=== PATIENT | female | born 1945 | race Caucasian/White ===

== ENCOUNTER 2024-10-31 12:15 | Inpatient (IN) ==
--- NOTE | 2024-10-31 12:27 | Emergency Department Note ---
HPI - General Adult General Chief complaint: General Complaint Stated complaint: FLUIDS Time Seen by Provider: 10/31/24 12:21 Source: family and caregiver Mode of arrival: walk-in Limitations: no limitations History of Present Illness HPI narrative: This is a 78 year old female patient that presents to the ER for IVF. Per son patient has been sick and has had a decreased appetitite and has not been drinking fluids. patient is on hospice at the group home. Per son patient was sent here to the ER for IVF Related Data Previous Rx's Medication Instructions Recorded cefdinir 300 mg capsule 300 mg PO BID infection 7 days #14 04/22/24 caps ondansetron HCl 4 mg tablet 4 mg PO Q6H PRN nausea and 04/22/24 vomiting #12 tabs Allergies Allergy/AdvReac Type Severity Reaction Status Date / Time No Known Drug Allergies Allergy Verified 10/31/24 12:44 Review of Systems Status of ROS unobtainable due to medical condition [facility] Medical History (Updated 10/31/24 @ 12:52 by Margy Mallory RN) Dependence on continuous supplemental oxygen Hypertension Hyperlipidemia Insomnia GERD (gastroesophageal reflux disease) Depression Anxiety Anemia COPD (chronic obstructive pulmonary disease) Alzheimer disease Social History Smoking status: former smoker Exam Constitutional: normal general appearance and no apparent distress Vital Signs - 24 hr 10/31/24 12:15 10/31/24 12:20 Temperature 99.0 F Pulse Rate 110 H Respiratory Rate 24 Blood Pressure 148/85 148/65 Pulse Oximetry 85 L 91 L Oxygen Delivery Me thod Room Air Nasal Cannula Oxygen Flow Rate 3 HENMT: normocephalic, head/scalp atraumatic, hearing grossly normal bilaterally, external ears normal, nasal mucous membranes normal, external nose normal, oral mucous membranes normal and oropharynx normal Eyes: PERRL, EOMs intact bilaterally, conjunctivae normal and no scleral icterus Neck/C-Spine: visual inspection normal and trachea midline Lymph: no lymphadenopathy noted Chest: inspection of chest normal Respiratory: breath sounds equal bilaterally, normal respiratory effort, clear to auscultation bilaterally, no wheezes, no rales, no retractions and no use of accessory muscles Cardiovascular: normal heart rate noted, regular rhythm noted, no gallop, no rub, no murmur, no JVD, no clicks, peripheral pulses 2+ throughout and no additional abnormal heart sounds Gastrointestinal: abdomen normal to inspection, abdomen soft to palpation, nontender to palpation, nontender to percussion, nondistended, normoactive bowel sounds, no hepatosplenomegaly, no masses, no pulsatile mass, no ascites and no hernia Back/Pelvis: spine normal to inspection Extremities: normal to inspection and normal to palpation Neurology: speech normal A&Ox name, place, confused to year and month Psychiatry: A&O to name and place, confused to year and month Skin: skin color normal Course Course Hospital Course: 1356: VSS, no s/s of acute distress noted, due to patient needing further treatment and medical evaluation will admit to the hospital Vital Signs Vital signs: Vital Signs Temperature 99.0 F 10/31/24 12:15 Pulse Rate 110 H 10/31/24 12:15 Respiratory Rate 10/31/24 12:15 Blood Pressure 148/85 10/31/24 12:15 Pulse Oximetry 85 L 10/31/24 12:15 Oxygen Delivery Method Room Air 10/31/24 12:15 Temperature 99.0 F 10/31/24 12:15 Pulse Rate 110 H 10/31/24 12:15 Respiratory Rate 10/31/24 12:15 Blood Pressure 148/65 10/31/24 12:20 Pulse Oximetry 91 L 10/31/24 12:20 Oxygen Delivery Method Nasal Cannula 10/31/24 12:20 Oxygen Flow Rate 3 10/31/24 12:20 Medical Decision Making Differential Diagnosis Differential Diagnosis: viral illness Medical Records Medical records reviewed: Yes I reviewed the patient's medical records Lab Data Lab results reviewed: Yes I reviewed the patient's lab results Labs: Lab Results 10/31/24 Range/Units 12:35 WBC 15.2 H (4.3-9.3) K/uL RBC 3.8 L (4.00-5.50) M/uL Hgb 10.6 L (12.5-15.8) gm/dL Hct 32.1 L (35.9-46.7) % MCV 83.8 (81.0-93.7) fl MCH 27.7 (27.6-32.2) pg MCHC 33.1 (33.1-35.3) g/dl RDW 13.8 (11.4-14.2) % Plt Count 284 (152-353) K/uL MPV 7.6 (6.9-10.8) fl Gran % 85.0 H (47.8-71.3) % Lymph % (Auto) 7.1 L (20.0-43.0) % [place] % (Auto) 7.1 (3.6-9.8) % Eos % (Auto) 0.4 (0.4-2.8) % Baso % (Auto) 0.4 (0.1-0.85) Lymph # (Auto) 1.1 (1.1-3.1) [place] # (Auto) 1.1 (1.1-3.1) Eos # (Auto) 0.1 (0.0-0.2) Baso # (Auto) 0.1 (0.0-0.1) Absolute Gran (auto) 12.9 H (2.3-6.0) Sodium 141 (136-145) mmol/L Potassium 4.1 (3.6-5.2) mmol/L Chloride 102.0 (98-107) mmol/L Carbon Dioxide 25 (21-32) mmol/L Anion Gap 14.0 (4-14) mEq/L BUN 54 H (7-18) mg/dL Creatinine 1.8 H (0.6-1.3) mg/dL Estimated GFR 28.5 (>59.9) Glucose 118 H (70-110) mg/dL Calcium 11.0 H (8.5-10.1) mg/dL Total Bilirubin 0.62 (0.0-1.0) mg/dL AST 43 H (15-37) U/L ALT 29 L (30-65) U/L Alkaline Phosphatase 121 (50-136) U/L Troponin I High Sens 5.10 (4.0-60.4) ng/L B-Natriuretic Peptide 71.3 (0-100) pg/mL Total Protein 7.6 (6.4-8.2) g/dL Albumin 3.0 L (3.4-5.0) g/dL Influenza Type A Ag Negative (Negative) Influenza Type B Ag Negative (Negative) Imaging Data Chest x-ray: Attestation: I have reviewed the pertinent imaging results. ECG Data Attestation: I have reviewed the pertinent ECG results. Discharge Plan Discharge Patient Disposition: Admitted As Observation Condition: Stable Chief Complaint: General Complaint Clinical Impression: Pneumonia, Dehydration, Acute renal failure Prescriptions: No Action cefdinir 300 mg capsule 300 mg PO BID 7 Days Qty: 14 0RF ondansetron HCl 4 mg tablet 4 mg PO Q6H PRN (Reason: nausea and vomiting) Qty: 12 0RF Print Language: Kiswahili Referrals: Maribel Sanchez, FI[employer] SAL[employer] REPRESENTATIVE [Primary Care Provider] - Time of Disposition: 14:01
[2024-10-31] MEDS ORDERED: 0.9 % SODIUM CHLORIDE 500 ML IV ONE (12:36)
[2024-10-31 12:42] LABS: Basophils #(Absolute) Auto 0.1 (0.0-0.1); Basophils%(Percent) Auto 0.4 (0.1-0.85); Eosinophils#(Absolute)Auto 0.1 (0.0-0.2); Eosinophils%(Percent) Auto 0.4 % (0.4-2.8); Granulocytes#(Absolute)- Auto 12.9 (2.3-6.0); Hematocrit 32.1 % (35.9-46.7); Mean Corpuscular Volume 83.8 fl (81.0-93.7); Monocytes #(Absolute)- Auto 1.1 (1.1-3.1); Monocytes %(Percent)- Auto 7.1 % (3.6-9.8); Platelet Count 284 K/uL (152-353); White Blood Count 15.2 K/uL (4.3-9.3)
[2024-10-31] MEDS: 0.9 % SODIUM CHLORIDE 500 ML IV ONE (12:43)
[2024-10-31 12:52] LABS: Potassium 4.1 mmol/L (3.6-5.2)
[2024-10-31] MEDS ORDERED: 0.9 % SODIUM CHLORIDE MB+ 50 ML IV ONE (13:59)
[2024-10-31] MEDS ORDERED: CEFTRIAXONE SODIUM 1 GM VIAL ONE (14:00)
[2024-10-31 14:01] LABS: Urine Amorphous Sediment Few (Negative); Urine Appearance CLEAR (CLEAR); Urine Blood 1+ (NEG - TRACE); Urine Color PALE YELLOW (STRAW/YELL.); Urine Urobilinogen Normal (NORMAL); Urine Yeast Negative (Negative)
[2024-10-31] MEDS: CEFTRIAXONE SODIUM 1 GM in 0.9 % SODIUM CHLORIDE MB+ 50 ML IV STA (14:02)
[2024-10-31] MEDS ORDERED: bisacodyL 10 MG SUPP.RECT PR PRN (14:57)
[2024-10-31] MEDS ORDERED: ACETAMINOPHEN 500 MG TABLET PO PRN (14:57)
[2024-10-31] MEDS ORDERED: MAGNESIUM, ALUMINUM HYDROXIDE 30 ML ORAL.SUSP PO PRN (14:57)
[2024-10-31] MEDS: 0.9 % SODIUM CHLORIDE 1000 ML 1,000 ML IV SCH (15:23)
[2024-10-31] MEDS: AZITHROMYCIN 500 MG 500 MG in 0.9 % SODIUM CHLORIDE 250 ML IV SCH (16:18)
[2024-11-01 05:36] LABS: Basophils #(Absolute) Auto 0.1 (0.0-0.1); Basophils%(Percent) Auto 0.4 (0.1-0.85); Eosinophils%(Percent) Auto 0.2 % (0.4-2.8); Granulocytes % - Auto 83.8 % (47.8-71.3); Granulocytes#(Absolute)- Auto 13.2 (2.3-6.0); Mean Corpuscular Volume 84.6 fl (81.0-93.7); Monocytes #(Absolute)- Auto 1.4 (1.1-3.1); Platelet Count 286 K/uL (152-353); White Blood Count 15.7 K/uL (4.3-9.3)
[2024-11-01 05:43] LABS: Potassium 3.3 mmol/L (3.6-5.2)
[2024-11-01] MEDS ORDERED: BENZONATATE 100 MG CAPSULE PO PRN (11:00)
[2024-11-01] MEDS: MEMANTINE HCL 5 MG TABLET PO SCH (11:07)
[2024-11-01] MEDS: POTASSIUM CHLORIDE 20 MEQ TAB.ER.PRT PO ONE (11:07)
[2024-11-01] MEDS: buPROPion HCL 150 MG TAB.SR.12H PO SCH (11:07)
[2024-11-01] MEDS: MAGNESIUM OXIDE 400 MG TABLET PO ONE (11:07)
[2024-11-01] MEDS: METOPROLOL SUCCINATE 25 MG TAB.ER.24H PO SCH (11:07)
[2024-11-01] MEDS: PANTOPRAZOLE SODIUM 40 MG TABLET.DR PO SCH (11:07)
[2024-11-01] MEDS: FERROUS SULFATE 325 MG TABLET PO SCH (11:07)
[2024-11-01] MEDS: CITALOPRAM HYDROBROMIDE 20 MG TABLET PO SCH (11:07)
[2024-11-01] MEDS: IPRATROPIUM/ALBUTEROL SULFATE 3 ML AMPUL.NEB INH SCH (11:30)
[2024-11-01] MEDS: BUDESONIDE/FORMOTEROL FUMARATE 160/4.5 MCG INH SCH (11:40)
[2024-11-01] MEDS: LEVOFLOXACIN/D5W 750 MG/150 ML 750 MG/150 ML PIGGYBACK IV SCH (11:41)
[2024-11-01] MEDS: TIOTROPIUM BROMIDE 18 MCG CAP.W.DEV INH SCH (11:41)
[2024-11-01] MEDS: FLUTICASONE UMECLIDIN VILANTER INH SCH (11:51)
[2024-11-01] MEDS: POTASSIUM PHOS M BASIC D BASIC IV ONE (12:46)
[2024-11-01] MEDS: SODIUM CHLORIDE 0.9% IV ONE (12:46)
[2024-11-01] MEDS ORDERED: CEFTRIAXONE SODIUM 1 GM in 0.9 % SODIUM CHLORIDE MB+ 50 ML IV SCH (14:00)
--- NOTE | 2024-11-01 14:42 | History & Physical Report ---
H&P: HPI History of Present Illness Chief complaint: PNEUMONIA, DEHYDRATION, ARF Narrative: This is a 78 year old female patient that presents to the ER for IVF. Per son patient has been sick and has had a decreased appetite and has not been drinking fluids. [facility]. Per son patient was sent here to the ER for IVF. Admitted to med/surg for further observation and treatment. Day one of hospital stay, patient's WBC is 15.7, on 3L O2 nasal canula, and BP elevated this am at 165/91. Per medical staff, patient was originally on hospice care at the [facility], however, the family has revoked Hospice at this time. Patient is alert and oriented to person. Chief complaint this morning is back pain while sitting up. Diet was changed to a Mechanical Soft - Thin. Review of Systems Status of ROS unobtainable due to medical condition Constitutional Denies: fever, chills or change in weight Eyes Denies: change in vision or blurry vision Psychiatric Denies: anxiety, mood swings or panic attacks PFSH PFSH Medical History End of life care Dependence on continuous supplemental oxygen Hypertension Hyperlipidemia Insomnia GERD (gastroesophageal reflux disease) Depression Anxiety Anemia COPD (chronic obstructive pulmonary disease) Alzheimer disease Social History Smoking status: former smoker Problems where you live: no known problems Problems where you live details: PT FROM [place] Highest level of school completed/degree received: decline to answer Meds Home Medications and Allergies Home Medications Medication Instructions Recorded Confirmed Type albuterol sulfate 90 mcg/actuation 2 puff inhalation Q6H PRN 10/31/24 10/31/24 History aerosol inhaler shortness of breath or wheezing alprazolam 1 mg tablet 1 mg PO BEDTIME 10/31/24 10/31/24 History benzonatate 100 mg capsule 100 mg PO Q8H PRN cough 10/31/24 10/31/24 History budesonide 0.5 mg/2 mL suspension 0.5 mg inhalation BID 10/31/24 10/31/24 History for nebulization bupropion HCl 150 mg tablet,12 hr 150 mg PO DAILY 10/31/24 10/31/24 History sustained-release cholecalciferol (vitamin D3) 1,250 1,250 mcg PO QWEEK 10/31/24 10/31/24 History mcg (50,000 unit) capsule citalopram 20 mg tablet 20 mg PO DAILY 10/31/24 10/31/24 History donepezil 10 mg tablet 10 mg PO BEDTIME 10/31/24 10/31/24 History ferrous sulfate 325 mg (65 mg 325 mg PO DAILY 10/31/24 10/31/24 History iron) tablet fluticasone fur. 100 mcg-umeclid 1 inh inhalation DAILY 10/31/24 10/31/24 History 62.5 mcg-vilant 25 mcg inhalat.powder (Trelegy Ellipta) guaifenesin 600 mg tablet, 600 mg PO Q12H PRN cough 10/31/24 10/31/24 History extended release 12 hr hydrocodone 10 mg-acetaminophen 1 tab PO Q6H PRN pain 10/31/24 10/31/24 History 325 mg tablet ipratropium 0.5 mg-albuterol 3 mg 3 ml inhalation TID PRN shortness 10/31/24 10/31/24 History (2.5 mg base)/3 mL nebulization of breath or wheezing soln loperamide 2 mg capsule 2 mg PO Q4H PRN loose stool 10/31/24 10/31/24 History (Anti-Diarrheal (loperamide)) meclizine 25 mg tablet 25 mg PO Q8H PRN dizziness 10/31/24 10/31/24 History melatonin 3 mg tablet 3 mg PO BEDTIME 10/31/24 10/31/24 History memantine 10 mg tablet 10 mg PO BID 10/31/24 10/31/24 History metoprolol succinate 25 mg 12.5 mg PO DAILY 10/31/24 10/31/24 History tablet,extended release 24 hr ondansetron HCl 4 mg tablet 4 mg PO Q8H PRN nausea and vomiting 10/31/24 5 History pantoprazole 40 mg tablet,delayed 40 mg PO BID 10/31/24 10/31/24 History release simvastatin 40 mg tablet 40 mg PO BEDTIME 10/31/24 10/31/24 History valsartan 320 1 tab PO DAILY 10/31/24 10/31/24 History mg-hydrochlorothiazide 25 mg tablet Allergies Allergy/AdvReac Type Severity Reaction Status Date / Time No Known Drug Allergies Allergy Verified 10/31/24 12:44 Exam Exam: Patient in Reyn[place]'s position upon entering room for exam. Constitutional: abnormal general appearance (disheveled), (chronically ill) and (lethargic), distress noted (mild), abnormal body habitus (overweight), limitations noted (physical limitations) and level of alertness abnormal (Oriented to person) (confused) Vital Signs - 24 hr 10/31/24 14:18 10/31/24 14:30 10/31/24 14:40 Temperature Pulse Rate 106 H 106 H Pulse Rate [Left] 101 H Respiratory Rate 21 24 Blood Pressure 141/78 141/78 Blood Pressure [Le ft Arm] Pulse Oximetry 96 90 L 90 L Oxygen Delivery Me thod Nasal Cannula Nasal Cannula Oxygen Flow Rate 3 3 10/31/24 14:57 10/31/24 15:09 10/31/24 19:42 Temperature 97.9 F 98.5 F Pulse Rate Pulse Rate [Left] 101 H 103 H Respiratory Rate 21 21 Blood Pressure Blood Pressure [Le ft Arm] 149/60 141/58 Pulse Oximetry 96 96 94 L Oxygen Delivery Me thod Nasal Cannula Nasal Cannula Nasal Cannula Oxygen Flow Rate 3 3 10/31/24 23:50 11/01/24 03:55 11/01/24 07:47 Temperature 98.2 F 97.4 F L 97.5 F L Pulse Rate Pulse Rate [Left] 109 H 105 H 114 H Respiratory Rate 23 20 19 Blood Pressure Blood Pressure [Le ft Arm] 163/70 178/84 164/91 Pulse Oximetry 92 L 96 95 Oxygen Delivery Me thod Nasal Cannula Nasal Cannula Nasal Cannula Oxygen Flow Rate 3 11/01/24 11:30 11/01/24 11:59 Temperature 97.7 F Pulse Rate Pulse Rate [Left] 107 H Respiratory Rate 19 Blood Pressure Blood Pressure [Le ft Arm] 159/66 Pulse Oximetry 94 L 94 L Oxygen Delivery Me thod Room Air Oxygen Flow Rate HENMT: normocephalic, head/scalp atraumatic, hearing grossly normal bilaterally, external ears normal, nasal mucous membranes normal, external nose normal, oral mucous membranes normal and oropharynx normal Eyes: PERRL, EOMs intact bilaterally, conjunctivae normal and no scleral icterus Neck/C-Spine: visual inspection normal and trachea midline Lymph: no lymphadenopathy noted Chest: inspection of chest normal Respiratory: breath sounds unequal, normal respiratory effort, auscultation abnormal (rt > lt) (diminished breath sound) and (bronchial breath sounds), wheezing noted (scattered wheezes), no rales, no retractions and no use of accessory muscles Cardiovascular: heart rate abnormal (tachycardic), regular rhythm noted, no gallop, no rub, no murmur, no JVD, no clicks, peripheral pulses 2+ throughout and no additional abnormal heart sounds Gastrointestinal: abdomen normal to inspection, abdomen soft to palpation, nontender to palpation, nontender to percussion, nondistended, normoactive bowel sounds, no hepatosplenomegaly, no masses, no pulsatile mass, no ascites and no hernia Back/Pelvis: spine normal to inspection Extremities: normal to inspection and normal to palpation Neurology: speech normal A&Ox name, place, confused to year and month Psychiatry: A&O to name and place, confused to year and month Skin: skin color normal Assessment and Plan Assessment and Plan (1) Pneumonia: Qualifiers: Laterality: left Lung location: lower lobe of lung Pneumonia type: due to unspecified organism Qualified Code(s): J18.9 - Pneumonia, unspecified organism Code(s): J18.9 - Pneumonia, unspecified organism (2) Dehydration: Code(s): E86.0 - Dehydration (3) Acute renal failure: Qualifiers: Acute renal failure type: unspecified Qualified Code(s): N17.9 - Acute kidney failure, unspecified Code(s): N17.9 - Acute kidney failure, unspecified (4) COPD (chronic obstructive pulmonary disease): Qualifiers: COPD type: unspecified COPD Qualified Code(s): J44.9 - Chronic obstructive pulmonary disease, unspecified Code(s): J44.9 - Chronic obstructive pulmonary disease, unspecified (5) Hypoalbuminemia: Code(s): E88.09 - Other disorders of plasma-protein metabolism, not elsewhere classified (6) Hypophosphatemia: Code(s): E83.39 - Other disorders of phosphorus metabolism (7) Debility: Code(s): R53.81 - Other malaise (8) Alzheimer disease: Code(s): G30.9 - Alzheimer's disease, unspecified; F02.80 - Dementia in other diseases classified elsewhere, unspecified severity, without behavioral disturbance, psychotic disturbance, mood disturbance, and anxiety (9) Anemia: Qualifiers: Anemia type: other cause Other causes of anemia: other cause, not classified Qualified Code(s): D64.89 - Other specified anemias Code(s): D64.9 - Anemia, unspecified (10) GERD (gastroesophageal reflux disease): Qualifiers: Esophagitis presence: with esophagitis Esophagitis bleeding: without hemorrhage Qualified Code(s): K21.00 - Gastro-esophageal reflux disease with esophagitis, without bleeding Code(s): K21.9 - Gastro-esophageal reflux disease without esophagitis (11) Hypertension: Qualifiers: Hypertension type: primary hypertension Qualified Code(s): I10 - Essential (primary) hypertension Code(s): I10 - Essential (primary) hypertension (12) End of life care: Code(s): Z51.5 - Encounter for palliative care Plan Sodium Chloride 1,000 mls @ 100 mls/hr IV CONT Budesonide 0.5 mg INH RBID Bupropion Hcl 150 mg PO DAILY Citalopram Hydrobromide 20 mg PO DAILY Donepezil Hcl 10 mg PO BEDTIME Ferrous Sulfate 325 mg PO DAILY Melatonin 3 mg PO BEDTIME Memantine 10 mg PO BID Metoprolol Succinate 12.5 mg PO DAILY Pantoprazole Sodium 40 mg PO BID Albuterol Sulfate 3 ml INH RQ4 Potassium Phosphate 27 mmol in Sodium Chloride 259 mls @ 42 mls/hr IV ONCE Levofloxacin/Dextrose 750 mg in 150 mls @ 75 mls/hr IV Q48H Tiotropium [place] 18 mcg INH DAILY Budesonide/Formoterol Fumarate 2 puff INH BID Vancomycin Hcl 500 mg in Sodium Chloride 100 mls @ 200 mls/hr IV Q12H Acetaminophen 500 mg PO Q6H PRN Magnesium Hydroxide 30 ml PO DAILY PRN Bisacodyl 10 mg PA DAILY PRN Benzonatate 100 mg PO Q8H PRN Results Labs Labs: CBC WBC 15.7 K/uL (4.3-9.3) H 11/01/24 04:15 RBC 3.7 M/uL (4.00-5.50) L 11/01/24 04:15 Hgb 10.3 gm/dL (12.5-15.8) L 11/01/24 04:15 Hct 31.0 % (35.9-46.7) L 11/01/24 04:15 MCV 84.6 fl (81.0-93.7) 11/01/24 04:15 MCH 28.2 pg (27.6-32.2) 11/01/24 04:15 MCHC 33.4 g/dl (33.1-35.3) 11/01/24 04:15 RDW 13.9 % (11.4-14.2) 11/01/24 04:15 Plt Count 286 K/uL (152-353) 11/01/24 04:15 MPV 8.1 fl (6.9-10.8) 11/01/24 04:15 Gran % 83.8 % (47.8-71.3) H 11/01/24 04:15 Lymph % (Auto) 6.6 % (20.0-43.0) L 11/01/24 04:15 [place] % (Auto) 9.0 % (3.6-9.8) 11/01/24 04:15 Eos % (Auto) 0.2 % (0.4-2.8) L 11/01/24 04:15 Baso % (Auto) 0.4 (0.1-0.85) 11/01/24 04:15 Lymph # (Auto) 1.0 (1.1-3.1) L 11/01/24 04:15 [place] # (Auto) 1.4 (1.1-3.1) 11/01/24 04:15 Eos # (Auto) 0.0 (0.0-0.2) 11/01/24 04:15 Baso # (Auto) 0.1 (0.0-0.1) 11/01/24 04:15 Absolute Gran (auto) 13.2 (2.3-6.0) H 11/01/24 04:15 BMP Sodium 147 mmol/L (136-145) H 11/01/24 04:15 Potassium 3.3 mmol/L (3.6-5.2) L 11/01/24 04:15 Chloride 106.0 mmol/L (98-107) 11/01/24 04:15 Carbon Dioxide 27 mmol/L (21-32) 11/01/24 04:15 Anion Gap 14.0 mEq/L (4-14) 11/01/24 04:15 BUN 38 mg/dL (7-18) H 11/01/24 04:15 Creatinine 1.2 mg/dL (0.6-1.3) 11/01/24 04:15 Estimated GFR 46.3 (>59.9) 11/01/24 04:15 Glucose 142 mg/dL (70-110) H 11/01/24 04:15 Calcium 10.7 mg/dL (8.5-10.1) H 11/01/24 04:15 Phosphorus 1.8 mg/dL (2.5-4.9) L 11/01/24 04:15 Magnesium 1.7 mg/dL (1.8-2.4) L 11/01/24 04:15 Total Bilirubin 0.39 mg/dL (0.0-1.0) 11/01/24 04:15 AST 39 U/L (15-37) H 11/01/24 04:15 ALT 28 U/L (30-65) L 11/01/24 04:15 Alkaline Phosphatase 116 U/L (50-136) 11/01/24 04:15 Total Protein 7.5 g/dL (6.4-8.2) 11/01/24 04:15 Albumin 2.9 g/dL (3.4-5.0) L 11/01/24 04:15 Cardiac Enzymes Troponin I High Sens 5.10 ng/L (4.0-60.4) 10/31/24 12:35 Liver Function Total Bilirubin 0.39 mg/dL (0.0-1.0) 11/01/24 04:15 AST 39 U/L (15-37) H 11/01/24 04:15 ALT 28 U/L (30-65) L 11/01/24 04:15 Alkaline Phosphatase 116 U/L (50-136) 11/01/24 04:15 Total Protein 7.5 g/dL (6.4-8.2) 11/01/24 04:15 Albumin 2.9 g/dL (3.4-5.0) L 11/01/24 04:15 Urine Urine Color Pale yellow (STRAW/YELL.) 10/31/24 13:35 Urine Appearance Clear (CLEAR) 10/31/24 13:35 Ur Specific [place]el 1.020 (1.001-1.035) 10/31/24 13:35 Urine Protein Negative (NEGATIVE) 10/31/24 13:35 Urine Glucose (UA) Normal (NORMAL) 10/31/24 13:35 Urine Ketones Moderate (NEGATIVE) 10/31/24 13:35 Urine Occult Blood 1+ (NEG - TRACE) 10/31/24 13:35 Urine Nitrite Negative (NEGATIVE) 10/31/24 13:35 Urine Bilirubin Negative (NEGATIVE) 10/31/24 13:35 Urine Urobilinogen Normal (NORMAL) 10/31/24 13:35 Ur Leukocyte Esterase Negative (NEGATIVE) 10/31/24 13:35 Imaging Imaging ordered: Chest x-ray Radiologist's impression: CHEST Date of Service: 10/31/24 HISTORY: Chest pain; COMPARISON: April 22, 2024. TECHNIQUE: Frontal view of the chest was submitted for interpretation. FINDINGS: The cardiomediastinal silhouette is within normal limits. Lungs show airspace consolidation in the left infrahilar region. IMPRESSION: Likely left infrahilar pneumonia.
[2024-11-01] MEDS: VANCOMYCIN HCL 500 MG 500 MG in 0.9 % SODIUM CHLORIDE MB+ 100 ML IV SCH ×2 (14:59→19:50)
[2024-11-01] MEDS: BUDESONIDE 0.5 MG/2 ML AMPUL.NEB INH SCH (20:27)
[2024-11-01] MEDS: MELATONIN 5 MG TABLET PO SCH (21:32)
[2024-11-01] MEDS: DONEPEZIL HCL 5 MG TABLET PO SCH (21:33)
[2024-11-02 05:23] LABS: Basophils%(Percent) Auto 0.2 (0.1-0.85); Eosinophils%(Percent) Auto 0.3 % (0.4-2.8); Granulocytes % - Auto 81.3 % (47.8-71.3); Granulocytes#(Absolute)- Auto 11.3 (2.3-6.0); Hematocrit 28.4 % (35.9-46.7); Mean Corpuscular Volume 83.1 fl (81.0-93.7); Monocytes #(Absolute)- Auto 1.3 (1.1-3.1); Monocytes %(Percent)- Auto 9.3 % (3.6-9.8); Platelet Count 297 K/uL (152-353); White Blood Count 13.9 K/uL (4.3-9.3)
[2024-11-02 05:39] LABS: Potassium 3.4 mmol/L (3.6-5.2)
[2024-11-02] MEDS: SODIUM CHLORIDE 0.45 % 1,000 ML IV SCH (10:30)
[2024-11-02] MEDS: METHYLPREDNISOLONE SOD SUCC/PF 40 MG/ML VIAL INJ SCH (10:30)
[2024-11-02] MEDS: ALBUMIN HUMAN 25% 100 ML IV ONE (10:30)
[2024-11-02] MEDS: POTASSIUM CHLORIDE 20 MEQ TAB.ER.PRT PO ONE (10:30)
--- NOTE | 2024-11-02 11:34 | Progress Note ---
Progress Note: Subjective Subjective Interval history: Patient chief complaint of chest pain in the center of her chest; during exam, area is tender to touch, patient retracts. GI cocktail has been ordered to relieve pain. Breath sounds have improved, air movement is better than previous day, scattered wheeze on inspiratory/expiratory. Per nurse, patient refused pain medication yesterday. Lab work reflects need for electrolyte resuscitation. Exam Exam: Patient in Reynoso's position upon entering room for exam. Constitutional: abnormal general appearance (disheveled), (chronically ill) and (lethargic), distress noted (mild), abnormal body habitus (overweight), limitations noted (physical limitations) and level of alertness abnormal (Oriented to person) (confused) Vital Signs - 24 hr 11/01/24 11:30 11/01/24 11:59 11/01/24 15:33 Temperature 97.7 F Pulse Rate [Left] 107 H Respiratory Rate 19 Blood Pressure [Le ft Arm] 159/66 Pulse Oximetry 94 L 94 L 97 Oxygen Delivery Me thod Room Air Oxygen Flow Rate Fraction of Inspir ed Oxygen 11/01/24 16:00 11/01/24 20:00 11/01/24 20:27 Temperature 97.8 F 98 F Pulse Rate [Left] 109 H 100 H Respiratory Rate 19 19 Blood Pressure [Le ft Arm] 173/85 162/78 Pulse Oximetry 94 L 94 L 95 Oxygen Delivery Me thod Nasal Cannula Nasal Cannula Oxygen Flow Rate 3 3 Fraction of Inspir ed Oxygen 11/01/24 20:27 11/02/24 00:00 11/02/24 04:00 Temperature 98.3 F 97.4 F L Pulse Rate [Left] 104 H 82 Respiratory Rate 18 17 Blood Pressure [Le ft Arm] 162/75 159/70 Pulse Oximetry 95 95 96 Oxygen Delivery Me thod Nasal Cannula Nasal Cannula Nasal Cannula Oxygen Flow Rate 3 3 3 Fraction of Inspir ed Oxygen 32 11/02/24 07:44 11/02/24 08:30 11/02/24 08:30 Temperature 98 F Pulse Rate [Left] 102 H Respiratory Rate 19 Blood Pressure [Le ft Arm] 172/82 Pulse Oximetry 91 L 98 98 Oxygen Delivery Me thod Nasal Cannula Nasal Cannula Oxygen Flow Rate 3 3 Fraction of Inspir ed Oxygen 32 HENMT: normocephalic, head/scalp atraumatic, hearing grossly normal bilaterally, external ears normal, nasal mucous membranes normal, external nose normal, oral mucous membranes normal and oropharynx normal Eyes: PERRL, EOMs intact bilaterally, conjunctivae normal and no scleral icterus Neck/C-Spine: visual inspection normal and trachea midline Lymph: no lymphadenopathy noted Chest: inspection of chest normal Respiratory: breath sounds equal bilaterally (improved air movement), normal respiratory effort, auscultation abnormal (throughout) (bronchial breath sounds), wheezing noted (expiratory wheezes), (inspiratory wheezes) and (scattered wheezes), no rales, no retractions and no use of accessory muscles Cardiovascular: heart rate abnormal (tachycardic), regular rhythm noted, no gallop, no rub, no murmur, no JVD, no clicks, peripheral pulses 2+ throughout and no additional abnormal heart sounds Gastrointestinal: abdomen normal to inspection, abdomen soft to palpation, nontender to palpation, nontender to percussion, nondistended, normoactive bowel sounds, no hepatosplenomegaly, no masses, no pulsatile mass, no ascites and no hernia Back/Pelvis: spine normal to inspection Extremities: normal to inspection and normal to palpation 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, no focal motor deficit noted, sensory deficit noted, gait abnormality noted, speech normal and coordination abnormality noted A&Ox name, place, confused to year and month Psychiatry: A&O to name and place, confused to year and month Feel stressed/tense/nervous/anxious/difficulty sleeping: not at all Skin: skin color normal, no rash, no lesions, no ecchymosis noted, skin turgor abnormal, no mottling and nails abnormality noted Progress Note: Objective Labs Labs: CBC WBC 13.9 K/uL (4.3-9.3) H 11/02/24 04:45 RBC 3.4 M/uL (4.00-5.50) L 11/02/24 04:45 Hgb 9.5 gm/dL (12.5-15.8) L 11/02/24 04:45 Hct 28.4 % (35.9-46.7) L 11/02/24 04:45 MCV 83.1 fl (81.0-93.7) 11/02/24 04:45 MCH 27.9 pg (27.6-32.2) 11/02/24 04:45 MCHC 33.5 g/dl (33.1-35.3) 11/02/24 04:45 RDW 14.1 % (11.4-14.2) 11/02/24 04:45 Plt Count 297 K/uL (152-353) 11/02/24 04:45 MPV 7.4 fl (6.9-10.8) 11/02/24 04:45 Gran % 81.3 % (47.8-71.3) H 11/02/24 04:45 Lymph % (Auto) 8.9 % (20.0-43.0) L 11/02/24 04:45 [place] % (Auto) 9.3 % (3.6-9.8) 11/02/24 04:45 Eos % (Auto) 0.3 % (0.4-2.8) L 11/02/24 04:45 Baso % (Auto) 0.2 (0.1-0.85) 11/02/24 04:45 Lymph # (Auto) 1.2 (1.1-3.1) 11/02/24 04:45 [place] # (Auto) 1.3 (1.1-3.1) 11/02/24 04:45 Eos # (Auto) 0.0 (0.0-0.2) 11/02/24 04:45 Baso # (Auto) 0.0 (0.0-0.1) 11/02/24 04:45 Absolute Gran (auto) 11.3 (2.3-6.0) H 11/02/24 04:45 BMP Sodium 147 mmol/L (136-145) H 11/02/24 04:45 Potassium 3.4 mmol/L (3.6-5.2) L 11/02/24 04:45 Chloride 108.0 mmol/L (98-107) H 11/02/24 04:45 Carbon Dioxide 28 mmol/L (21-32) 11/02/24 04:45 Anion Gap 11.0 mEq/L (4-14) 11/02/24 04:45 BUN 20 mg/dL (7-18) H 11/02/24 04:45 Creatinine 1.0 mg/dL (0.6-1.3) 11/02/24 04:45 Estimated GFR 57.7 (>59.9) 11/02/24 04:45 Glucose 121 mg/dL (70-110) H 11/02/24 04:45 Calcium 10.3 mg/dL (8.5-10.1) H 11/02/24 04:45 Phosphorus 2.0 mg/dL (2.5-4.9) L 11/02/24 04:45 Magnesium 1.4 mg/dL (1.8-2.4) L 11/02/24 04:45 Total Bilirubin 0.34 mg/dL (0.0-1.0) 11/02/24 04:45 AST 30 U/L (15-37) 11/02/24 04:45 ALT 30 U/L (30-65) 11/02/24 04:45 Alkaline Phosphatase 95 U/L (50-136) 11/02/24 04:45 Total Protein 6.7 g/dL (6.4-8.2) 11/02/24 04:45 Albumin 2.5 g/dL (3.4-5.0) L 11/02/24 04:45 Cardiac Enzymes Troponin I High Sens 5.10 ng/L (4.0-60.4) 10/31/24 12:35 Liver Function Total Bilirubin 0.34 mg/dL (0.0-1.0) 11/02/24 04:45 AST 30 U/L (15-37) 11/02/24 04:45 ALT 30 U/L (30-65) 11/02/24 04:45 Alkaline Phosphatase 95 U/L (50-136) 11/02/24 04:45 Total Protein 6.7 g/dL (6.4-8.2) 11/02/24 04:45 Albumin 2.5 g/dL (3.4-5.0) L 11/02/24 04:45 Urine Urine Color Pale yellow (STRAW/YELL.) 10/31/24 13:35 Urine Appearance Clear (CLEAR) 10/31/24 13:35 Ur Specific [place] 1.020 (1.001-1.035) 10/31/24 13:35 Urine Protein Negative (NEGATIVE) 10/31/24 13:35 Urine Glucose (UA) Normal (NORMAL) 10/31/24 13:35 Urine Ketones Moderate (NEGATIVE) 10/31/24 13:35 Urine Occult Blood 1+ (NEG - TRACE) 10/31/24 13:35 Urine Nitrite Negative (NEGATIVE) 10/31/24 13:35 Urine Bilirubin Negative (NEGATIVE) 10/31/24 13:35 Urine Urobilinogen Normal (NORMAL) 10/31/24 13:35 Ur Leukocyte Esterase Negative (NEGATIVE) 10/31/24 13:35 Imaging Chest x-ray: Attestation: I have reviewed the pertinent imaging results. Radiologist's impression: CHEST HISTORY: Chest pain; COMPARISON: April 22, 2024. TECHNIQUE: Frontal view of the chest was submitted for interpretation. FINDINGS: The cardiomediastinal silhouette is within normal limits. Lungs show airspace consolidation in the left infrahilar region. IMPRESSION: Likely left infrahilar pneumonia. Progress Note: A&P Assessment and Plan (1) Pneumonia: Qualifiers: Laterality: left Lung location: lower lobe of lung Pneumonia type: due to unspecified organism Qualified Code(s): J18.9 - Pneumonia, unspecified organism (2) Dehydration: (3) Acute renal failure: Qualifiers: Acute renal failure type: unspecified Qualified Code(s): N17.9 - Acute kidney failure, unspecified (4) COPD (chronic obstructive pulmonary disease): Qualifiers: COPD type: unspecified COPD Qualified Code(s): J44.9 - Chronic obstructive pulmonary disease, unspecified (5) Hypoalbuminemia: (6) Hypophosphatemia: Plan Start GI Cocktail for chest pain Hospice education for family Sodium Chloride 1,000 mls @ 100 mls/hr IV CONT Budesonide 0.5 mg INH RBID Bupropion Hcl 150 mg PO DAILY Citalopram Hydrobromide 20 mg PO DAILY Donepezil Hcl 10 mg PO BEDTIME Ferrous Sulfate 325 mg PO DAILY Melatonin 3 mg PO BEDTIME Memantine 10 mg PO BID Metoprolol Succinate 12.5 mg PO DAILY Pantoprazole Sodium 40 mg PO BID Albuterol Sulfate 3 ml INH RQ4 Potassium Phosphate 27 mmol in Sodium Chloride 259 mls @ 42 mls/hr IV ONCE Levofloxacin/Dextrose 750 mg in 150 mls @ 75 mls/hr IV Q48H Tiotropium [place] 18 mcg INH DAILY Budesonide/Formoterol Fumarate 2 puff INH BID Vancomycin Hcl 500 mg in Sodium Chloride 100 mls @ 200 mls/hr IV Q12H Acetaminophen 500 mg PO Q6H PRN Magnesium Hydroxide 30 ml PO DAILY PRN Bisacodyl 10 mg [place] DAILY PRN Benzonatate 100 mg PO Q8H PRN Fall Risk Details Nicole Fall Scale Risk Level: Moderate Fall Risk Current Medications: Current Medications Acetaminophen (Acetaminophen 500 Mg Tablet) 500 mg PO Q6H PRN PRN Reason: Pain Albuterol Sulfate (Ipratropium/Albuterol Sulfate 3 Ml Ampul.Neb) 3 ml INH RQ4 [facility] Last Admin: 11/02/24 08:29 Dose: 3 ml Benzonatate (Benzonatate 100 Mg Capsule) 100 mg PO Q8H PRN PRN Reason: cough Bisacodyl (Bisacodyl 10 Mg Supp.Rect) 10 mg [place] DAILY PRN PRN Reason: Constipation Budesonide (Budesonide 0.5 Mg/2 Ml Ampul.Neb) 0.5 mg INH RBID [facility] Last Admin: 11/02/24 08:29 Dose: 0.5 mg Budesonide/Formoterol Fumarate (Budesonide/Formoterol Fumarate 160/4.5 Mcg) 2 puff INH BID [facility] Last Admin: 11/02/24 08:19 Dose: 2 puff Bupropion HCl (Bupropion Hcl 150 Mg Tab.Sr.12h) 150 mg PO DAILY [facility] Last Admin: 11/02/24 08:19 Dose: 150 mg Citalopram Hydrobromide (Citalopram Hydrobromide 20 Mg Tablet) 20 mg PO DAILY [facility] Last Admin: 11/02/24 08:19 Dose: 20 mg Donepezil HCl (Donepezil Hcl 5 Mg Tablet) 10 mg PO BEDTIME [facility] Last Admin: 11/01/24 21:33 Dose: 10 mg Ferrous Sulfate (Ferrous Sulfate 325 Mg Tablet) 325 mg PO DAILY [facility] Last Admin: 11/02/24 08:19 Dose: 325 mg Levofloxacin/Dextrose ([id number] 750 Mg/150 Ml) 750 mg in 150 mls @ 75 mls/hr IV Q48H [facility] Last Admin: 11/01/24 11:41 Dose: 75 mls/hr Vancomycin HCl 500 mg/ Sodium (Chloride) 100 mls @ 200 mls/hr IV Q12H [facility] Last Admin: 11/02/24 08:19 Dose: 200 mls/hr Albumin Human (Albumin Human 25%) 100 mls @ 60 mls/hr IV ONCE ONE Stop: 11/02/24 11:39 Last Admin: 11/02/24 10:30 Dose: 60 mls/hr Magnesium Sulfate 3 gm/ Sodium (Chloride) 106 mls @ 33.33 mls/hr IV ONCE ONE Stop: 11/02/24 15:10 Potassium Phosphate 27 mmol/ (Sodium Chloride) 259 mls @ 42 mls/hr IV ONCE ONE Stop: 11/02/24 21:09 Sodium Chloride (Sodium Chloride 0.45%) 1,000 mls @ 100 mls/hr IV CONT [facility] Last Admin: 11/02/24 10:30 Dose: 100 mls/hr Magnesium Hydroxide (Magnesium, Aluminum Hydroxide 30 Ml Oral.Susp) 30 ml PO DAILY PRN PRN Reason: gerd Melatonin (Melatonin 5 Mg Tablet) 3 mg PO BEDTIME [facility] Last Admin: 11/01/24 21:32 Dose: 3 mg Memantine (Memantine Hcl 5 Mg Tablet) 10 mg PO BID [facility] Last Admin: 11/02/24 08:19 Dose: 10 mg Methylprednisolone Sodium Succinate (Methylprednisolone Sod Succ/Pf 40 Mg/Ml Vial) 40 mg INJ Q8H [facility] Last Admin: 11/02/24 10:30 Dose: 40 mg Metoprolol Succinate (Metoprolol Succinate 25 Mg Tab.Er.24h) 12.5 mg PO DAILY [facility] Last Admin: 11/02/24 08:20 Dose: 12.5 mg Multi-Ingredient GI Drug (Gi Cocktail 30 Ml Solution) 30 ml PO Q2H PRN PRN Reason: Dyspepsia Pantoprazole Sodium (Pantoprazole Sodium 40 Mg Tablet.) 40 mg PO BID [facility] Last Admin: 11/02/24 08:20 Dose: 40 mg Tiotropium [place] (Tiotropium [place] 18 Mcg Cap.W.Dev) 18 mcg INH DAILY [facility] Last Admin: 11/02/24 08:20 Dose: 18 mcg Time Spent With Patient Time: Total time spent is greater than 50% in coordination of care (as documented) at patient's floor/unit and/or counseling patient:
[2024-11-02] MEDS: GI COCKTAIL 30 ML SOLUTION PO PRN (11:50)
[2024-11-02] MEDS: MAGNESIUM SULFATE 1 GM/2 ML 3 GM in 0.9 % SODIUM CHLORIDE 100ML 100 ML IV ONE (11:50)
[2024-11-02] MEDS: POTASSIUM PHOS M BASIC D BASIC IV ONE (14:34)
[2024-11-02] MEDS: SODIUM CHLORIDE 0.9% IV ONE (14:34)
[2024-11-03] MEDS: POTASSIUM CHLORIDE 20 MEQ TAB.ER.PRT PO ONE ×3 (09:52→12:27)
[2024-11-03] MEDS: MAGNESIUM SULFATE 1 GM/2 ML 3 GM in 0.9 % SODIUM CHLORIDE 100ML 100 ML IV ONE (09:52)
--- NOTE | 2024-11-03 12:47 | Progress Note ---
Progress Note: Subjective Subjective Interval history: Patient taking medications and remains confused and no more chest pain noted since the GI cocktail yesterday. slept well and still confused and staying in the bed. Electrolytes still not corrected. Can not go back to the retirement as cannot finish electrolytes before 12 pm. Exam Exam: Patient in Reynoso's position upon entering room for exam. Constitutional: abnormal general appearance (disheveled), (chronically ill) and (lethargic), distress noted (mild), abnormal body habitus (overweight), limitations noted (physical limitations) and level of alertness abnormal (Oriented to person) (confused) Vital Signs - 24 hr 11/02/24 15:17 11/02/24 16:00 11/02/24 20:00 Temperature 98.3 F 97.7 F Pulse Rate [Left] 97 H 99 H Respiratory Rate 19 20 Blood Pressure [Le ft Arm] 156/75 170/66 Pulse Oximetry 97 92 L 100 Oxygen Delivery Me thod Nasal Cannula Nasal Cannula Oxygen Flow Rate 2 Fraction of Inspir ed Oxygen 11/02/24 20:06 11/02/24 20:06 11/03/24 00:00 Temperature 98.1 F Pulse Rate [Left] 71 Respiratory Rate 18 Blood Pressure [Le ft Arm] 164/84 Pulse Oximetry 97 97 98 Oxygen Delivery Me thod Nasal Cannula Nasal Cannula Oxygen Flow Rate 3 3 Fraction of Inspir ed Oxygen 32 11/03/24 04:00 11/03/24 07:13 11/03/24 07:13 Temperature 98 F Pulse Rate [Left] 99 H Respiratory Rate 22 Blood Pressure [Le ft Arm] 178/79 Pulse Oximetry 92 L 97 97 Oxygen Delivery Me thod Nasal Cannula Nasal Cannula Oxygen Flow Rate 3 3 Fraction of Inspir ed Oxygen 32 11/03/24 08:00 11/03/24 11:57 Temperature 98.3 F 98.6 F Pulse Rate [Left] 98 H 98 H Respiratory Rate 20 20 Blood Pressure [Le ft Arm] 175/81 176/85 Pulse Oximetry 91 L 92 L Oxygen Delivery Me thod Nasal Cannula Nasal Cannula Oxygen Flow Rate 3 3 Fraction of Inspir ed Oxygen HENMT: normocephalic, head/scalp atraumatic, hearing grossly normal bilaterally, external ears normal, nasal mucous membranes normal, external nose normal, oral mucous membranes normal and oropharynx normal Eyes: PERRL, EOMs intact bilaterally, conjunctivae normal and no scleral icterus Neck/C-Spine: visual inspection normal and trachea midline Lymph: no lymphadenopathy noted Chest: inspection of chest normal Respiratory: breath sounds equal bilaterally (improved air movement), normal respiratory effort, auscultation abnormal (throughout) (bronchial breath sounds), wheezing noted (expiratory wheezes), (inspiratory wheezes) and (scattered wheezes), no rales, no retractions and no use of accessory muscles Cardiovascular: heart rate abnormal (tachycardic), regular rhythm noted, no gallop, no rub, no murmur, no JVD, no clicks, peripheral pulses 2+ throughout and no additional abnormal heart sounds Gastrointestinal: abdomen normal to inspection, abdomen soft to palpation, nontender to palpation, nontender to percussion, nondistended, normoactive bowel sounds, no hepatosplenomegaly, no masses, no pulsatile mass, no ascites and no hernia Back/Pelvis: spine normal to inspection Extremities: normal to inspection and normal to palpation 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, no focal motor deficit noted, sensory deficit noted, gait abnormality noted, speech normal and coordination abnormality noted A&Ox name, place, confused to year and month Psychiatry: A&O to name and place, confused to year and month Feel stressed/tense/nervous/anxious/difficulty sleeping: not at all Skin: skin color normal, no rash, no lesions, no ecchymosis noted, skin turgor abnormal, no mottling and nails abnormality noted Progress Note: Objective Labs Labs: CBC WBC 13.9 K/uL (4.3-9.3) H 11/02/24 04:45 RBC 3.4 M/uL (4.00-5.50) L 11/02/24 04:45 Hgb 9.5 gm/dL (12.5-15.8) L 11/02/24 04:45 Hct 28.4 % (35.9-46.7) L 11/02/24 04:45 MCV 83.1 fl (81.0-93.7) 11/02/24 04:45 MCH 27.9 pg (27.6-32.2) 11/02/24 04:45 MCHC 33.5 g/dl (33.1-35.3) 11/02/24 04:45 RDW 14.1 % (11.4-14.2) 11/02/24 04:45 Plt Count 297 K/uL (152-353) 11/02/24 04:45 MPV 7.4 fl (6.9-10.8) 11/02/24 04:45 Gran % 81.3 % (47.8-71.3) H 11/02/24 04:45 Lymph % (Auto) 8.9 % (20.0-43.0) L 11/02/24 04:45 [place] % (Auto) 9.3 % (3.6-9.8) 11/02/24 04:45 Eos % (Auto) 0.3 % (0.4-2.8) L 11/02/24 04:45 Baso % (Auto) 0.2 (0.1-0.85) 11/02/24 04:45 Lymph # (Auto) 1.2 (1.1-3.1) 11/02/24 04:45 [place] # (Auto) 1.3 (1.1-3.1) 11/02/24 04:45 Eos # (Auto) 0.0 (0.0-0.2) 11/02/24 04:45 Baso # (Auto) 0.0 (0.0-0.1) 11/02/24 04:45 Absolute Gran (auto) 11.3 (2.3-6.0) H 11/02/24 04:45 BMP Sodium 147 mmol/L (136-145) H 11/02/24 04:45 Potassium 3.4 mmol/L (3.6-5.2) L 11/02/24 04:45 Chloride 108.0 mmol/L (98-107) H 11/02/24 04:45 Carbon Dioxide 28 mmol/L (21-32) 11/02/24 04:45 Anion Gap 11.0 mEq/L (4-14) 11/02/24 04:45 BUN 20 mg/dL (7-18) H 11/02/24 04:45 Creatinine 1.0 mg/dL (0.6-1.3) 11/02/24 04:45 Estimated GFR 57.7 (>59.9) 11/02/24 04:45 Glucose 121 mg/dL (70-110) H 11/02/24 04:45 Calcium 10.3 mg/dL (8.5-10.1) H 11/02/24 04:45 Phosphorus 2.0 mg/dL (2.5-4.9) L 11/02/24 04:45 Magnesium 1.4 mg/dL (1.8-2.4) L 11/02/24 04:45 Total Bilirubin 0.34 mg/dL (0.0-1.0) 11/02/24 04:45 AST 30 U/L (15-37) 11/02/24 04:45 ALT 30 U/L (30-65) 11/02/24 04:45 Alkaline Phosphatase 95 U/L (50-136) 11/02/24 04:45 Total Protein 6.7 g/dL (6.4-8.2) 11/02/24 04:45 Albumin 2.5 g/dL (3.4-5.0) L 11/02/24 04:45 Cardiac Enzymes Troponin I High Sens 5.10 ng/L (4.0-60.4) 10/31/24 12:35 Liver Function Total Bilirubin 0.34 mg/dL (0.0-1.0) 11/02/24 04:45 AST 30 U/L (15-37) 11/02/24 04:45 ALT 30 U/L (30-65) 11/02/24 04:45 Alkaline Phosphatase 95 U/L (50-136) 11/02/24 04:45 Total Protein 6.7 g/dL (6.4-8.2) 11/02/24 04:45 Albumin 2.5 g/dL (3.4-5.0) L 11/02/24 04:45 Urine Urine Color Pale yellow (STRAW/YELL.) 10/31/24 13:35 Urine Appearance Clear (CLEAR) 10/31/24 13:35 Ur Specific [place] 1.020 (1.001-1.035) 10/31/24 13:35 Urine Protein Negative (NEGATIVE) 10/31/24 13:35 Urine Glucose (UA) Normal (NORMAL) 10/31/24 13:35 Urine Ketones Moderate (NEGATIVE) 10/31/24 13:35 Urine Occult Blood 1+ (NEG - TRACE) 10/31/24 13:35 Urine Nitrite Negative (NEGATIVE) 10/31/24 13:35 Urine Bilirubin Negative (NEGATIVE) 10/31/24 13:35 Urine Urobilinogen Normal (NORMAL) 10/31/24 13:35 Ur Leukocyte Esterase Negative (NEGATIVE) 10/31/24 13:35 ECG Attestation: I have reviewed the pertinent ECG results. Interpretation: sinus rhytm without evidence of ischemia Imaging Chest x-ray: Radiologist's impression: XR CHEST 2V HISTORY: PNEUMONIA; CV/MB COMPARISON: October 31, 2024 FINDINGS: The trachea is midline. The cardiac silhouette is mildly enlarged. Mild emphysema is present. Small residue left lung base infiltrate is seen. The rest of lungs are clear without focal infiltrate or effusion. The bony thorax is unremarkable. IMPRESSION: Marked resolution of pneumonia. Progress Note: A&P Assessment and Plan (1) Pneumonia: Assessment and Plan: resolved and cannot make retirement curfew today secondary to IV electrolyte replacement and will send patient back in the am with continuation of m edications as needed Qualifiers: Pneumonia type: due to unspecified organism Laterality: left Lung location: lower lobe of lung Qualified Code(s): J18.9 - Pneumonia, unspecified organism (2) Dehydration: Assessment and Plan: stopped IV fluids (3) Acute renal failure: Assessment and Plan: resolved Qualifiers: Acute renal failure type: unspecified Qualified Code(s): N17.9 - Acute kidney failure, unspecified (4) COPD (chronic obstructive pulmonary disease): Assessment and Plan: improving Qualifiers: COPD type: unspecified COPD Qualified Code(s): J44.9 - Chronic obstructive pulmonary disease, unspecified (5) Hypoalbuminemia: (6) Hypophosphatemia: (7) Hypertension: Qualifiers: Hypertension type: primary hypertension Qualified Code(s): I10 - Essential (primary) hypertension (8) GERD (gastroesophageal reflux disease): Assessment and Plan: GI coctail has controlled the pain Qualifiers: Esophagitis presence: with esophagitis Esophagitis bleeding: without hemorrhage Qualified Code(s): K21.00 - Gastro-esophageal reflux disease with esophagitis, without bleeding (9) Anemia: Qualifiers: Anemia type: other cause Other causes of anemia: other cause, not classified Qualified Code(s): D64.89 - Other specified anemias (10) Alzheimer disease: (11) Debility: (12) End of life care: (13) Chest pain at rest: Assessment and Plan: EKG stable and no evidence of ischemia and Trop negative Plan Start GI Cocktail for chest pain Hospice education for family Sodium Chloride 1,000 mls @ 100 mls/hr IV CONT Budesonide 0.5 mg INH RBID Bupropion Hcl 150 mg PO DAILY Citalopram Hydrobromide 20 mg PO DAILY Donepezil Hcl 10 mg PO BEDTIME Ferrous Sulfate 325 mg PO DAILY Melatonin 3 mg PO BEDTIME Memantine 10 mg PO BID Metoprolol Succinate 12.5 mg PO DAILY Pantoprazole Sodium 40 mg PO BID Albuterol Sulfate 3 ml INH RQ4 Potassium Phosphate 27 mmol in Sodium Chloride 259 mls @ 42 mls/hr IV ONCE Levofloxacin/Dextrose 750 mg in 150 mls @ 75 mls/hr IV Q48H Tiotropium [place] 18 mcg INH DAILY Budesonide/Formoterol Fumarate 2 puff INH BID Vancomycin Hcl 500 mg in Sodium Chloride 100 mls @ 200 mls/hr IV Q12H Acetaminophen 500 mg PO Q6H PRN Magnesium Hydroxide 30 ml PO DAILY PRN Bisacodyl 10 mg [place] DAILY PRN Benzonatate 100 mg PO Q8H PRN Fall Risk Details Nicole Fall Scale Risk Level: Moderate Fall Risk Current Medications: Current Medications Acetaminophen (Acetaminophen 500 Mg Tablet) 500 mg PO Q6H PRN PRN Reason: Pain Albuterol Sulfate (Ipratropium/Albuterol Sulfate 3 Ml Ampul.Neb) 3 ml INH RQ4 [facility] Last Admin: 11/03/24 10:46 Dose: Not Given Benzonatate (Benzonatate 100 Mg Capsule) 100 mg PO Q8H PRN PRN Reason: cough Bisacodyl (Bisacodyl 10 Mg Supp.Rect) 10 mg [place] DAILY PRN PRN Reason: Constipation Budesonide (Budesonide 0.5 Mg/2 Ml Ampul.Neb) 0.5 mg INH RBID [facility] Last Admin: 11/03/24 07:15 Dose: Not Given Budesonide/Formoterol Fumarate (Budesonide/Formoterol Fumarate 160/4.5 Mcg) 2 puff INH BID [facility] Last Admin: 11/03/24 09:11 Dose: 2 puff Bupropion HCl (Bupropion Hcl 150 Mg Tab.Sr.12h) 150 mg PO DAILY [facility] Last Admin: 11/03/24 09:10 Dose: 150 mg Citalopram Hydrobromide (Citalopram Hydrobromide 20 Mg Tablet) 20 mg PO DAILY [facility] Last Admin: 11/03/24 09:09 Dose: 20 mg Donepezil HCl (Donepezil Hcl 5 Mg Tablet) 10 mg PO BEDTIME [facility] Last Admin: 11/02/24 20:24 Dose: 10 mg Ferrous Sulfate (Ferrous Sulfate 325 Mg Tablet) 325 mg PO DAILY [facility] Last Admin: 11/03/24 09:10 Dose: 325 mg Levofloxacin/Dextrose ([id number] 750 Mg/150 Ml) 750 mg in 150 mls @ 75 mls/hr IV Q48H [facility] Last Admin: 11/03/24 12:27 Dose: 75 mls/hr Vancomycin HCl 500 mg/ Sodium (Chloride) 100 mls @ 200 mls/hr IV Q12H [facility] Last Infusion: 11/03/24 09:38 Dose: Infused Sodium Chloride (Sodium Chloride 0.45%) 1,000 mls @ 100 mls/hr IV CONT [facility] Last Admin: 11/03/24 12:27 Dose: Not Given Magnesium Hydroxide (Magnesium, Aluminum Hydroxide 30 Ml Oral.Susp) 30 ml PO DAILY PRN PRN Reason: gerd Melatonin (Melatonin 5 Mg Tablet) 3 mg PO BEDTIME [facility] Last Admin: 11/02/24 20:23 Dose: 3 mg Memantine (Memantine Hcl 5 Mg Tablet) 10 mg PO BID [facility] Last Admin: 11/03/24 09:10 Dose: 10 mg Methylprednisolone Sodium Succinate (Methylprednisolone Sod Succ/Pf 40 Mg/Ml Vial) 40 mg INJ Q8H [facility] Last Admin: 11/03/24 09:10 Dose: 40 mg Metoprolol Succinate (Metoprolol Succinate 25 Mg Tab.Er.24h) 12.5 mg PO DAILY [facility] Last Admin: 11/03/24 09:09 Dose: 12.5 mg Multi-Ingredient GI Drug (Gi Cocktail 30 Ml Solution) 30 ml PO Q2H PRN PRN Reason: Dyspepsia Last Admin: 11/02/24 11:50 Dose: 30 ml Pantoprazole Sodium (Pantoprazole Sodium 40 Mg Tablet.Dr) 40 mg PO BID [facility] Last Admin: 11/03/24 09:10 Dose: 40 mg Tiotropium Epworth (Tiotropium Epworth 18 Mcg Cap.W.Dev) 18 mcg INH DAILY [facility] Last Admin: 11/03/24 09:11 Dose: 18 mcg Time Spent With Patient Time: Total time spent is greater than 50% in coordination of care (as documented) at patient's floor/unit and/or counseling patient:
[2024-11-03 23:56] VITALS: RESP 19
[2024-11-04 08:04] VITALS: BP 175/78; PULSE 108; TEMP 98.5
[2024-11-04 10:12] LABS: Basophils%(Percent) Auto 0.1 (0.1-0.85); Granulocytes % - Auto 87.7 % (47.8-71.3); Granulocytes#(Absolute)- Auto 15.6 (2.3-6.0); Hematocrit 28.7 % (35.9-46.7); Mean Corpuscular Volume 84.3 fl (81.0-93.7); Monocytes #(Absolute)- Auto 0.8 (1.1-3.1); Monocytes %(Percent)- Auto 4.4 % (3.6-9.8); Platelet Count 315 K/uL (152-353); White Blood Count 17.7 K/uL (4.3-9.3)
[2024-11-04 10:24] LABS: Potassium 3.6 mmol/L (3.6-5.2)
[2024-11-04] MEDS: MAGNESIUM OXIDE 400 MG TABLET PO ONE (11:51)
[2024-11-04] MEDS: POTASSIUM PHOSPHATE 500 MG TABLET.SOL PO ONE (11:51)
[2024-11-04] MEDS: METOPROLOL SUCCINATE 25 MG TAB.ER.24H PO ONE (12:08)
[2024-11-04] MEDS ORDERED: POTASSIUM PHOSPHATE 500 MG TABLET.SOL PO ONE (12:29)
--- NOTE | 2024-11-04 13:18 | Discharge Summary ---
DS: Providers Provider Date of admission: 10/31/24 14:05 Primary care physician: Maribel Sanchez NP Admitting clinician: Latoya Hart Attending physician on admission: Eliana Sin Attending physician on discharge: Eliana Sin Discharging clinician: Eliana Sin Anticipated date of discharge: 11/04/24 DS: Diagnosis Discharge Diagnosis (1) Pneumonia: Qualifiers: Laterality: left Lung location: lower lobe of lung Pneumonia type: due to unspecified organism Qualified Code(s): J18.9 - Pneumonia, unspecified organism (2) Dehydration: (3) Acute renal failure: Qualifiers: Acute renal failure type: unspecified Qualified Code(s): N17.9 - Acute kidney failure, unspecified (4) COPD (chronic obstructive pulmonary disease): Qualifiers: COPD type: unspecified COPD Qualified Code(s): J44.9 - Chronic obstructive pulmonary disease, unspecified (5) Hypoalbuminemia: (6) Hypophosphatemia: (7) Hypertension: Qualifiers: Hypertension type: primary hypertension Qualified Code(s): I10 - Essential (primary) hypertension (8) GERD (gastroesophageal reflux disease): Qualifiers: Esophagitis bleeding: without hemorrhage Esophagitis presence: with esophagitis Qualified Code(s): K21.00 - Gastro-esophageal reflux disease with esophagitis, without bleeding (9) Anemia: Qualifiers: Anemia type: other cause Other causes of anemia: other cause, not classified Qualified Code(s): D64.89 - Other specified anemias (10) Alzheimer disease: (11) Debility: (12) End of life care: (13) Chest pain at rest: (14) Cough: (15) Pulmonary hypertension: (16) Hypomagnesemia: Plan Discharge back to [facility]. DS: Summary Hospital Course Hospital Course: This is a 78 year old female patient that presents to the ER for IVF. Per son patient has been sick and has had a decreased appetite and has not been drinking fluids. Patient is on hospice at the custodial. Per son patient was sent here to the ER for IVF. Admitted to med/surg for further observation and treatment. Day one of hospital stay, patient's WBC is 15.7, on 3L O2 nasal canula, and BP elevated this am at 165/91. Per medical staff, patient was originally on hospice care at the [facility], however, the family has revoked Hospice at this time. Patient is alert and oriented to person. Chief complaint this morning is back pain while sitting up. Diet was changed to a Mechanical Soft - Thin. Day two of hospital stay, patient chief complaint of chest pain in the center of her chest; during exam, area is tender to touch, patient retracts. GI cocktail has been ordered to relieve pain. Breath sounds have improved, air movement is better than previous day, scattered wheeze on inspiratory/expiratory. Per nurse, patient refused pain medication yesterday. Lab work reflects need for electrolyt e resuscitation. Day three of hospital stay, patient taking medications and remains confused and no more chest pain noted since the GI cocktail yesterday. slept well and still confused and staying in the bed. Electrolytes still not corrected. Can not go back to the custodial as cannot finish electrolytes before 12 pm. Day four of hospital stay, patient will continue to receive electrolyte r eplacement PO at home. Patient is ready to be discharged home to the [facility]. Repeat lab work on 11/06/24 and report results to PCP. Patient PCP should be notified if symptoms worsen. Status at Discharge Overall status at discharge: patient is progressing back to baseline Time Spent with Patient Time attestation: Total time spent providing and/or coordinating discharge services: Time spent: greater than 30 minutes Exam Exam: Patient in Reynoso's position upon entering room for exam. Constitutional: abnormal general appearance (disheveled), (chronically ill) and (lethargic), no apparent distress, abnormal body habitus (overweight), limitations noted (physical limitations) and level of alertness abnormal (Oriented to person) (confused) Vital Signs - 24 hr 11/03/24 15:27 11/03/24 15:47 11/03/24 19:25 Temperature 98.2 F 98.4 F Pulse Rate [Left] 101 H 86 Respiratory Rate 20 21 Blood Pressure [Le ft Arm] 174/88 171/76 Pulse Oximetry 99 92 L 96 Oxygen Delivery Me thod Nasal Cannula Nasal Cannula Oxygen Flow Rate 3 Fraction of Inspir ed Oxygen 11/03/24 20:53 11/03/24 20:53 11/03/24 23:55 Temperature 97.7 F Pulse Rate [Left] 88 Respiratory Rate 19 Blood Pressure [Le ft Arm] 157/59 Pulse Oximetry 98 98 95 Oxygen Delivery Me thod Nasal Cannula Nasal Cannula Oxygen Flow Rate Fraction of Inspir ed Oxygen 2 11/04/24 03:47 11/04/24 07:22 11/04/24 07:22 Temperature 98.0 F Pulse Rate [Left] 91 H Respiratory Rate 19 Blood Pressure [Le ft Arm] 166/80 Pulse Oximetry 95 95 97 Oxygen Delivery Me thod Nasal Cannula Nasal Cannula Oxygen Flow Rate 2 Fraction of Inspir ed Oxygen 11/04/24 08:00 Temperature 98.5 F Pulse Rate [Left] 108 H Respiratory Rate 19 Blood Pressure [Le ft Arm] 175/78 Pulse Oximetry 91 L Oxygen Delivery Me thod Nasal Cannula Oxygen Flow Rate 3 Fraction of Inspir ed Oxygen HENMT: normocephalic, head/scalp atraumatic, hearing grossly normal bilaterally, external ears normal, nasal mucous membranes normal, external nose normal, oral mucous membranes normal and oropharynx normal Eyes: PERRL, EOMs intact bilaterally, conjunctivae normal and no scleral icterus Neck/C-Spine: visual inspection normal and trachea midline Lymph: no lymphadenopathy noted Chest: inspection of chest normal Respiratory: breath sounds equal bilaterally, normal respiratory effort, clear to auscultation bilaterally, no wheezes, no rales, no retractions and no use of accessory muscles Cardiovascular: heart rate abnormal (tachycardic), regular rhythm noted, no gallop, no rub, no murmur, no JVD, no clicks, peripheral pulses 2+ throughout and no additional abnormal heart sounds Gastrointestinal: abdomen normal to inspection, abdomen soft to palpation, nontender to palpation, nontender to percussion, nondistended, normoactive bowel sounds, no hepatosplenomegaly, no masses, no pulsatile mass, no ascites and no hernia Back/Pelvis: spine normal to inspection Extremities: normal to inspection and normal to palpation 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, no focal motor deficit noted, sensory deficit noted, gait abnormality noted, speech normal and coordination abnormality noted A&Ox name, place, confused to year and month Psychiatry: A&O to name and place, confused to year and month Skin: skin color normal, no rash, no lesions, no ecchymosis noted, skin turgor abnormal, no mottling and nails abnormality noted DS: Data Data Completed and Pending Labs on day of discharge: Labs from last 24 hours 11/04/24 10:05 WBC 17.7 H RBC 3.4 L Hgb 9.5 L Hct 28.7 L MCV 84.3 MCH 27.8 MCHC 32.9 L RDW 14.4 H Plt Count 315 MPV 6.9 Gran % 87.7 H Lymph % (Auto) 7.8 L [place] % (Auto) 4.4 Eos % (Auto) 0.0 L Baso % (Auto) 0.1 Lymph # (Auto) 1.4 [place] # (Auto) 0.8 L Eos # (Auto) 0.0 Baso # (Auto) 0.0 Absolute Gran (auto) 15.6 H Sodium 139 Potassium 3.6 Chloride 104.0 Carbon Dioxide 28 Anion Gap 7.0 BUN 26 H Creatinine 1.2 Estimated GFR 46.3 Glucose 164 H Calcium 9.7 Phosphorus 1.9 L Magnesium 1.5 L Imaging Chest x-ray: Radiologist's impression: CHEST Date of Service: 10/31/24 HISTORY: Chest pain; COMPARISON: April 22, 2024. TECHNIQUE: Frontal view of the chest was submitted for interpretation. FINDINGS: The cardiomediastinal silhouette is within normal limits. Lungs show airspace consolidation in the left infrahilar region. IMPRESSION: Likely left infrahilar pneumonia. XR CHEST 2V Date of Service: 11/03/24 HISTORY: PNEUMONIA; CV/MB COMPARISON: October 31, 2024 FINDINGS: The trachea is midline. The cardiac silhouette is mildly enlarged. Mild emphysema is present. Small residue left lung base infiltrate is seen. The rest of lungs are clear without focal infiltrate or effusion. The bony thorax is unremarkable. IMPRESSION: Marked resolution of pneumonia. Discharge Plan Discharge Disposition: [facility] Condition: Improved Anticipated Discharge Date/Time: 11/04/24 09:52 Discharge Medications: New magnesium 200 mg tablet 400 mg PO BID Qty: 20 0RF K-Phos Original 500 mg tablet,soluble 1,000 mg PO BID Qty: 20 0RF metoprolol succinate 25 mg Tablet Extended Release 24 Hr 25 mg PO DAILY Qty: 30 0RF levofloxacin 500 mg tablet 500 mg PO DAILY Qty: 5 0RF Continued loperamide [Anti-Diarrheal (loperamide)] 2 mg capsule 2 mg PO Q4H PRN (Reason: loose stool) Rx Instructions: administer after each loose stool until symptoms controlled; do not exceed 8 mg per 24 hrs pantoprazole 40 mg tablet,delayed release (DR/EC) 40 mg PO BID ipratropium-albuterol 0.5 mg-3 mg(2.5 mg base)/3 mL solution for nebulization 3 ml INHALATION TID PRN (Reason: shortness of breath or wheezing) simvastatin 40 mg tablet 40 mg PO BEDTIME hydrocodone-acetaminophen 10-325 mg tablet 1 tab PO Q6H PRN (Reason: pain) cholecalciferol (vitamin D3) 1,250 mcg (50,000 unit) capsule 1,250 mcg PO QWEEK guaifenesin 600 mg tablet extended release 12hr 600 mg PO Q12H PRN (Reason: cough) albuterol sulfate 90 mcg/actuation HFA aerosol inhaler 2 puff INHALATION Q6H PRN (Reason: shortness of breath or wheezing) valsartan-hydrochlorothiazide 320-25 mg tablet 1 tab PO DAILY ferrous sulfate 325 mg (65 mg iron) tablet 325 mg PO DAILY melatonin 3 mg tablet 3 mg PO BEDTIME bupropion HCl 150 mg tablet sustained-release 12 hr 150 mg PO DAILY Trelegy Ellipta 100-62.5-25 mcg blister with device 1 inh INHALATION DAILY donepezil 10 mg tablet 10 mg PO BEDTIME citalopram 20 mg tablet 20 mg PO DAILY budesonide 0.5 mg/2 mL suspension for nebulization 0.5 mg inhalation BID memantine 10 mg tablet 10 mg PO BID ondansetron HCl 4 mg tablet 4 mg PO Q8H PRN (Reason: nausea and vomiting) Discontinued alprazolam 1 mg tablet 1 mg PO BEDTIME benzonatate 100 mg capsule 100 mg PO Q8H PRN (Reason: cough) meclizine 25 mg tablet 25 mg PO Q8H PRN (Reason: dizziness) No Action metoprolol succinate 25 mg tablet extended release 24 hr 12.5 mg PO DAILY Discharge Orders: Discharge Order (Routine); Ordered 11/04/24 Ordered By: Eliana Sin Activity: as per physical therapy and increase activity as tolerated Diet: advance to your usual diet 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 Per son patient has been sick and has had a decreased appetite and has not been drinking fluids. Patient is on hospice at the custodial. Per son patient was sent here to the ER for IVF. Admitted to med/surg for further observation and treatment. Day one of hospital stay, patient's WBC is 15.7, on 3L O2 nasal canula, and BP elevated this am at 165/91. Per medical staff, patient was originally on hospice care at the [facility], however, the family has revoked Hospice at this time. Patient is alert and oriented to person. Chief complaint this morning is back pain while sitting up. Diet was changed to a Mechanical Soft - Thin. Day two of hospital stay, patient chief complaint of chest pain in the center of her chest; during exam, area is tender to touch, patient retracts. GI cocktail has been ordered to relieve pain. Breath sounds have improved, air movement is better than previous day, scattered wheeze on inspiratory/expiratory. Per nurse, patient refused pain medication yesterday. Lab work reflects need for electrolyte resuscitation. Day three of hospital stay, patient taking medications and remains confused and no more chest pain noted since the GI cocktail yesterday. slept well and still confused and staying in the bed. Electrolytes still not corrected. Can not go back to the custodial as cannot finish electrolytes before 12 pm. Day four of hospital stay, patient will continue to receive electrolyte replacement PO at home. Patient is ready to be discharged home to the [facility]. Repeat lab work on 11/06/24 and report results to PCP. Patient PCP should be notified if symptoms worsen. Interventions: Discharge Assessment Last Done: 11/04/24 11:30 MED/SURG & ICU Observation Charge Sheet Last Done: 11/04/24 05:50 Print Language: Andorran Patient Instructions: Pneumonia (DC), Hospital Acquired Pneumonia (DC) Activity Restrictions/Additional Instructions: PT/OT therapy as evaluation warrants CMP, Mag, Phos, CBC on 11/06/2024 and call results to DOC continue Incentive spirometer and encourage deep breathing and moving around continue Levaquin x 5 days and call doctor juan manuel with any fever or worsening or concerns Forms: Portal/Health Info Access Inst Follow-Ups: Maribel Sanchez, PAPER MAKING MACHINE OPERATOR [Primary Care Provider] - Discharge Date/Time: 11/04/24 13:00
== END 2024-11-04 13:00 | DRG 194 ==
LOC: ED 12:15 → MS 12:15 → OBSVTOIN 14:05 → MS 14:50
PROVIDERS: ADMIT Family Medicine; ATTEND Family Medicine
DX: N17.8 Other acute kidney failure; F02.80 Dementia in other diseases classified elsewhere, unspecified severity, without behavioral disturbance, psychotic disturbance, mood disturbance, and anxiety; I10 Essential (primary) hypertension; E86.0 Dehydration; E83.42 Hypomagnesemia; E83.39 Other disorders of phosphorus metabolism; I27.20 Pulmonary hypertension, unspecified; K21.00 Gastro-esophageal reflux disease with esophagitis, without bleeding; E88.09 Other disorders of plasma-protein metabolism, not elsewhere classified; R07.89 Other chest pain; J18.9 Pneumonia, unspecified organism; J44.0 Chronic obstructive pulmonary disease with (acute) lower respiratory infection; Z51.5 Encounter for palliative care; D64.89 Other specified anemias; R05.9 Cough, unspecified; Z87.891 Personal history of nicotine dependence; G30.8 Other Alzheimer's disease; R53.81 Other malaise